=== PATIENT | female | born 1990 | race Caucasian/White ===

== ENCOUNTER 2017-08-30 11:26 | Inpatient (IN) | END 2017-09-02 18:20 | disposition home or self-care (01) | DRG 743 ==

== ENCOUNTER 2018-07-14 18:46 | Emergency (ER) | payer SELFPAY ==
[~2018-07-14] VITALS: Ht 165.1 cm; Wt 85.4 kg
[2018-07-14 18:51] VITALS: Ht 165.1 cm; Wt 85.4 kg
[2018-07-15] MEDS ORDERED: IBUP-1542 PO (14:09)
[2018-07-15] MEDS ORDERED: HYDR-4011 PO (14:09)
== END 2018-07-14 23:22 | disposition left against medical advice (07) ==
LOC: FTE 18:46
DX: Z53.21 Procedure and treatment not carried out due to patient leaving prior to being seen by health care provider (principal)

== ENCOUNTER 2018-07-15 06:43 | Emergency (ER) | payer MEDICAID ==
[~2018-07-15] VITALS: Ht 152.4 cm; Wt 84.9 kg
[2018-07-15 06:45] VITALS: Ht 152.4 cm; Wt 84.9 kg
[2018-07-15] MEDS ORDERED: ONDANSETRON 4 MG INJ IV STA (07:02)
[2018-07-15] MEDS ORDERED: morphine 4 MG/ML VIAL IV STA (07:02)
[2018-07-15] MEDS ORDERED: HYDROmorphONE 0.5 MG/0.5 ML SYG IV STA ×3 (09:04→13:24)
[2018-07-15 13:32] VITALS: BP 122/65; PULSE 75; RESP 20
[2018-07-15] MEDS ORDERED: HYDR-4011 PO (14:09)
[2018-07-15] MEDS ORDERED: IBUP-1542 PO (14:09)
--- NOTE | 2018-07-15 14:11 | ERD ---
ER Documentation Chief Complaint Chief Complaint LOWER LEFT AP X 3 DAY HPI 28-year-old female presents with left pelvic pain for the last 3 days. Patient denies any vomiting, fevers, urinary complaints. Patient is concerned because she had a ovarian torsion approximately 1 year ago. She was able to have the ovary detorsed according to the medical record. This was discovered on exploratory laparotomy for intractable pelvic pain. By history 1 month later she had a hysterectomy for endometriosis. Patient has been fine for the last 9 months until the pain started in the last 3 days. ROS All systems reviewed and are negative except as per history of present illness. Medications Home Meds Active Scripts Ibuprofen* (Motrin*) 600 Mg Tab, 600 MG PO Q6, #30 TAB Prov:TOMMY COOL MD 07/15/18 Hydrocodone/Acetaminophen ([place] 5-325 Tablet) 1 Each Tablet, 1 TAB PO Q6H PRN for PAIN, #10 TAB Prov:TOMMY COOL MD 07/15/18 Allergies Allergies: Coded Allergies: penicillinase (Verified Allergy, Unknown, 07/15/18) PMhx/Soc History of Surgery: Yes (gallbladder, tubal ligation, uturus removed) Anesthesia Reaction: No Hx Neurological Disorder: No Hx Respiratory Disorders: No Hx Cardiac Disorders: No Hx Psychiatric Problems: No Hx Miscellaneous Medical Probl: Yes (kidney stones) Hx Alcohol Use: No Hx Substance Use: No Hx Tobacco Use: No Smoking Status: Never smoker FmHx Family History: No diabetes, No coronary disease, No other Physical Exam Vitals Vital Signs Date Temp Pulse Resp B/P (MAP) Pulse Ox O2 O2 Flow FiO2 Time Delivery Rate 07/15/18 75 20 122/65 Room Air 13:32 (84) 07/15/18 98.9 96 18 142/80 99 06:45 (100) Physical Exam Const: No acute distress Head: Atraumatic Eyes: Normal Conjunctiva ENT: Normal External Ears, Nose and Mouth. Neck: Full range of motion. No meningismus. Resp: Clear to auscultation bilaterally Cardio: Regular rate and rhythm, no murmurs Abd: Soft, tenderness in the left pelvic area. No tenderness McBurney's point no Evans sign. No focal rebound. Non distended. Normal bowel sounds Skin: No petechiae or rashes Back: No midline or flank tenderness Ext: No cyanosis, or edema Neur: Awake and alert Psych: Normal Mood and Affect Result Diagram: 07/15/18 [id number] Results 24 hrs Laboratory Tests Test 07/15/18 07:11 07/15/18 07:19 07/15/18 07:29 Urine Color STRAW Urine Clarity SLIGHTLY CLOUDY Urine pH 5.0 Urine Specific [place] 1.017 Urine Ketones NEGATIVE mg/dL Urine Nitrite NEGATIVE mg/dL Urine Bilirubin NEGATIVE mg/dL Urine Urobilinogen NEGATIVE mg/dL Urine Leukocyte Esterase NEGATIVE [place]/ul Urine Microscopic RBC 0 /HPF Urine Microscopic WBC 3 /HPF Urine Squamous Epithelial Cells FEW /HPF Urine Bacteria FEW /HPF Urine Hemoglobin NEGATIVE mg/dL Urine Glucose NEGATIVE mg/dL Urine Total Protein NEGATIVE mg/dl White Blood Count 7.8 10^3/ul Red Blood Count 4.36 10^6/ul Hemoglobin 12.2 g/dl Hematocrit 36.6 % Mean Corpuscular Volume 83.9 fl Mean Corpuscular Hemoglobin 28.0 pg Mean Corpuscular 33.3 g/dl Hemoglobin Concent Red Cell Distribution Width 12.5 % Platelet Count 363 10^3/UL Mean Platelet Volume 9.7 fl Immature Granulocytes % 0.100 % Neutrophils % 51.4 % Lymphocytes % 36.7 % Monocytes % 7.6 % Eosinophils % 3.6 % Basophils % 0.6 % Nucleated Red Blood Cells % 0.0 /100WBC Immature Granulocytes # 0.010 10^3/ul Neutrophils # 4.0 10^3/ul Lymphocytes # 2.9 10^3/ul Monocytes # 0.6 10^3/ul Eosinophils # 0.3 10^3/ul Basophils # 0.1 10^3/ul Nucleated Red Blood Cells # 0.0 10^3/ul Sodium Level 142 mmol/L Potassium Level 4.1 mmol/L Chloride Level 107 mmol/L Carbon Dioxide Level 26 mmol/L Anion Gap 9 Blood Urea Nitrogen 18 mg/dl Creatinine 0.66 mg/dl Est Glomerular Filtrat > 60 mL/min Rate mL/min Glucose Level 105 mg/dl Calcium Level 9.5 mg/dl Total Bilirubin 0.1 mg/dl Direct Bilirubin 0.00 mg/dl Indirect Bilirubin 0.1 mg/dl Aspartate Amino 25 IU/L Transf (AST/SGOT) Alanine 21 IU/L Aminotransferase (ALT/SGPT) Alkaline Phosphatase 70 IU/L Total Protein 7.4 g/dl Albumin 4.2 g/dl Globulin 3.20 g/dl Albumin/Globulin Ratio 1.31 Lipase 159 U/L POC Beta HCG, Qualitative NEGATIVE Current Medications Medications Dose Sig/Lizy Start Time Status Last (Trade) Ordered Route PRN Stop Time Admin Dose Reason Admin Morphine 4 mg ONCE STAT 07/15/18 DC 07/15/18 Sulfate IV 07:02 07:28 (morphine) 07/15/18 07:03 Ondansetron 4 mg ONCE STAT 07/15/18 DC 07/15/18 HCl (Zofran IV 07:02 07:28 Inj) 07/15/18 07:03 1 mg ONCE STAT 07/15/18 DC 07/15/18 Hydromorphone IV 09:04 09:16 HCl 07/15/18 09:05 (Dilaudid) 0.5 mg ONCE STAT 07/15/18 DC 07/15/18 Hydromorphone IV 11:03 11:22 HCl 07/15/18 11:04 (Dilaudid) 0.5 mg ONCE STAT 07/15/18 DC 07/15/18 Hydromorphone IV 13:24 13:28 HCl 07/15/18 13:25 (Dilaudid) Procedures/MDM Patient presents with left pelvic pain of uncertain etiology. Patient was given morphine 4 mg IV Zofran 4 m IV beer. Patient had pain despite morphine. She is given Dilaudid 0.5 mg x3 during her ER course. Pelvic ultrasound was unable to identify the left ovary. Right ovary shows no acute abnormalities. CT abdomen pelvis shows no acute abnormalities. OB was consulted for pelvic pain of uncertain etiology given history of ovarian torsion. MRI recommended. MRI with and without contrast shows absent left ovary and uterus no appreciable acute abnormalities in the right ovary. Patient confirmed that she was under the impression that her ovaries were spared bilaterally during her hysterectomy but they are not visualized on the MRI and this was discussed with patient. Patient had improvement in pain after prolonged ED course, IV pain medication and Pamela dol 30 mill grams IV. Urine shows no significant signs of infection and hCG is negative. Patient has left pelvic pain of uncertain etiology. There is no current signs or symptoms of ovarian torsion, appendicitis, surgical abdomen. Patient was discharged home with [employer] follow-up, short course of [place] and ibuprofen for pain. She should return for fevers, worsening pain, blood, new worsening symptoms with primary care and OB as directed. The patient was stable with no new complaints during the ER course. Clinically, there is no current evidence to suggest meningitis, sepsis, acute abdomen, pneumonia, stroke, acute coronary syndrome, pulmonary embolism, aortic dissection or any other emergent condition appearing to require further evaluation or hospitalization. Patient counseled regarding my diagnostic impression and care plan. Prior to discharge all questions answered. Pt agrees with treatment plan and understands strict return precautions. Pt is instructed to follow up with primary care provider within 24-48 hours. Precautionary instructions provided including instructions to return to the ER if not improving or for any worsening or changing symptoms or concerns. Departure Diagnosis: Primary Impression: Abdominal pain Abdominal location: lower abdomen, unspecified Qualified Codes: R10.30 - Lower abdominal pain, unspecified Condition: Stable Patient Instructions: Pelvic Pain, Unknown Cause Referrals: DOCTOR,NOT ON STAFF (PCP) Additional Instructions: No identifiable emergent cause of symptoms today. Left ovary not visible on MRI. Recommend see jail officer for further evaluation and treatment. Recheck for fevers, vomiting, worsening pain, new or worsening symptoms. TOMMY COOL MD Jul 15, 2018 14:11
[2018-07-15] MEDS ORDERED: KETOROLAC 30 MG INJ IV STA (14:13)
== END 2018-07-15 14:45 | disposition home or self-care (01) ==
LOC: FTE 06:43
DX: R10.30 Lower abdominal pain, unspecified (principal); R10.2 Pelvic and perineal pain
CPT/HCPCS: 36415; 72197; 74176; 76830; 76856; 80053; 81001; 81025; 83690; 85025; 96374; 96375; 96376; J1170; J1885; J2270; J2405; Z7502; 81003

== ENCOUNTER 2019-01-15 18:12 | Emergency (ER) | payer SELFPAY ==
[~2019-01-15] VITALS: Ht 165.1 cm; Wt 85.0 kg
[~2019-01-15 18:12] MED LIST: HYDR-4011 PO; IBUP-1542 PO
[2019-01-15 18:17] VITALS: Ht 165.1 cm; Wt 85.0 kg
[2019-01-15] MEDS ORDERED: morphine 4 MG/ML VIAL IV STA (18:45)
[2019-01-15] MEDS ORDERED: SOD CHLORIDE 0.9% 1,000 ML IV STA (18:45)
[2019-01-15] MEDS ORDERED: ONDANSETRON 4 MG INJ IV STA (18:45)
[2019-01-15 21:48] VITALS: BP 106/59; PULSE 73; RESP 19
== END 2019-01-15 21:49 | disposition home or self-care (01) ==
LOC: FTE 18:12
DX: N83.201 Unspecified ovarian cyst, right side (principal)
CPT/HCPCS: 36415; 74176; 76856; 80053; 81001; 81025; 83690; 85025; 96374; 96375; 99285; J2270; J2405; J7030